=== PATIENT | female | born 1975 | race Caucasian/White ===

== ENCOUNTER 2017-05-23 05:28 | Outpatient (CLI) | payer OTHER ==
[~2017-05-23] VITALS: Ht 167.6 cm; Wt 60.3 kg
== END 2017-05-23 09:36 ==
LOC: PREOP 05:28 → EDUNIT# 08:30 → PREOP 09:36
PROVIDERS: ATTEND Obstetrics & Gynecology
DX: Z01.818 Encounter for other preprocedural examination (principal); O02.1 Missed abortion; Z3A.00 Weeks of gestation of pregnancy not specified

== ENCOUNTER 2017-05-25 06:07 | Day surgery (SDC) | payer OTHER ==
[~2017-05-25] VITALS: Ht 167.6 cm; Wt 60.3 kg
[2017-05-25 06:30] VITALS: BP 106/47
[2017-05-25 06:49] LABS: BASOPHILS % (AUTO) 1 % (0-10); EOSINOPHILS % (AUTO) 1 % (0-10); LYMPHOCYTES # (AUTO) 2.1 X 10^3 (1.0-4.0); LYMPHOCYTES % (AUTO) 36 % (12-44); MEAN CORPUSCULAR HEMOGLOBIN 31 PG (25-34); MEAN CORPUSCULAR HGB CONC 34 G/DL (32-36); MEAN CORPUSCULAR VOLUME 90 FL (80-99); MONOCYTES # (AUTO) 0.7 X 10^3 (0.0-1.0); MONOCYTES % (AUTO) 12 % (0-12); NEUTROPHILS % (AUTO) 51 % (42-75); PLATELET COUNT 208 10^3/uL (130-400); RED BLOOD COUNT 4.54 10^6/uL (4.35-5.85); RED CELL DISTRIBUTION WIDTH 13.2 % (10.0-14.5); WHITE BLOOD COUNT 5.9 10^3/uL (4.3-11.0)
[2017-05-25] MEDS ORDERED: fentaNYL INJECTION 100 MCG/2 ML AMP ONE (06:50)
[2017-05-25] MEDS ORDERED: LIDOCAINE PF 2% 5 ML (XYLOCAINE) VIAL ONE (06:50)
[2017-05-25] MEDS ORDERED: DEXAMETHASONE 10 MG/ML (DECADRON) 1 ML VIAL ONE (06:50)
[2017-05-25] MEDS ORDERED: proPOfol 200 MG/20 ML (DIPRIVAN) VIAL IV ONE (06:50)
[2017-05-25] MEDS ORDERED: MIDAZOLAM 2 MG/2 ML (VERSED) VIAL ONE (06:50)
[2017-05-25] MEDS ORDERED: SEVOFLURANE (ULTANE) 15 ML INHAL SOLN ONE (06:50)
[2017-05-25] MEDS ORDERED: ONDANSETRON 4 MG/2 ML (SDV) Z0FRAN ONE (06:50)
[2017-05-25] MEDS ORDERED: LACTATED RINGERS 1,000 ML IV PRN (06:57)
--- NOTE | 2017-05-25 07:08 | History & Physical-Surgical ---
HPO-Surgical History of Present Illness Chief Complaint: Missed Ab HPI: patient was seen in the office last week where US revealed no live IUP at >8 weeks gestation as well as a falling BHCG. Diagnosis/Surgical Indication: MISSED AB Procedure: Suction D&C Date of Surgery: May 25, 2017 Weight (Pounds): 133 Weight (Ounces): 0.0 Height (Feet): 5 Height (Inches): 6.00 Allergies and Home Medications Allergies Coded Allergies: Penicillins (Verified Allergy, Unknown, intractable abd pain, 05/23/17) Sulfa (Sulfonamide Antibiotics) (Verified Allergy, Unknown, HIVES, 05/23/17 ) Home Medications No Active Prescriptions or Reported Meds Past Xbpidwr-Qnxequ-Ckctcp Hx Patient Social History Marrital Status: Number of Children: 2 Number of living children: 2 Alcohol Use: Rarely Uses Recreational Drug Use: No Smoking Status: Never a Smoker Recent Foreign Travel: No Contact w/other who traveled: No Recent Hopitalizations: No Recent Infectious Disease Expo: No Seasonal Allergies Seasonal Allergies: Yes (sometimes) Reproductive System Hx Reproductive Disorders: No Exam Vital Signs Vital Signs 05/25/17 06:30 Temp 98.5 Pulse 77 Resp 18 B/P (MAP) 106/47 Pulse Ox 99 O2 Delivery Room Air Capillary Refill : Labs Laboratory Tests Test 05/25/17 06:31 Range/Units General Appearance: Alert, Oriented X3 HEENT: Atraumatic Respiratory: Clear to Auscultation Cardiovascular: Regular Rate Abdominal: Normal Bowel Sounds Extremities: No Clubbing, No Cyanosis, No Edema, Normal Pulses, No Tenderness/ Swelling Skin: No Significant Lesion Neuro: Normal Gait, Normal Speech, Strength at 5/5 X4 Ext Psych/Mental Status: Mental Status NL Assessment/Plan Assessment and Plan Diagnosis: Missed Ab P: Suction D and C Problems: Admission Diagnosis Missed Ab MAHENDRAQUCO Amelia TIRADO May 25, 2017 7:08 am
[2017-05-25] MEDS ORDERED: morphine INJ 10 MG/ML 1ML (SYR OR VIAL) ONE (07:34)
[2017-05-25] MEDS ORDERED: D5 LR IV SOLUTION 1,000 ML IV SCH (07:38)
[2017-05-25] MEDS ORDERED: KETOROLAC 30 MG/ML VIAL IVP ONE (07:45)
[2017-05-25] MEDS ORDERED: APAP 300 MG/CODEINE 30 MG (TYLENOL #3) TAB PO PRN (07:45)
[2017-05-25] MEDS ORDERED: ONDANSETRON 4 MG/2 ML (SDV) Z0FRAN IVP PRN ×2 (07:45→08:00)
--- NOTE | 2017-05-25 07:45 | Discharge Inst-Women's Service ---
Discharge Inst-Women's Serv Depart Medication/Instructions New, Converted or Re-Newed RX: RX on Chart Consults/Follow Up Additional Follow Up: Yes Orders/Referrals See in office Activity Activity: Activity as Tolerated Driving Instructions: You May Drive (do not drive today) NO SMOKING: NO SMOKING Nothing Inside Vagina: No Douching, No [employer], No Tampons Diet Discharge Diet: No Restrictions Symptoms to Report to : Bleeding Excessive, Pain Increased, Fever Over 101 Degrees F, Vaginal Bleeding Increase, Questions/Concerns For Any Problems or Questions: Contact Your Physician QUOC MCCRAY DO May 25, 2017 07:45
[2017-05-25] MEDS ORDERED: IBUP-1773 PO (07:46)
[2017-05-25] MEDS ORDERED: ACET1TAB43 PO (07:46)
[2017-05-25] MEDS ORDERED: morphine INJ 10 MG/ML 1ML (SYR OR VIAL) IVP PRN (08:00)
[2017-05-25 08:25] VITALS: BP 105/62
--- NOTE | 2017-05-25 08:27 | OPERATIVE REPORT ---
DATE OF SERVICE: 05/25/2017 PREOPERATIVE DIAGNOSES: 1. A 42-year-old G3, P2 at approximately 9 weeks' gestation. 2. Missed . POSTOPERATIVE DIAGNOSES: 1. A 42-year-old G3, P2 at approximately 9 weeks' gestation. 2. Missed . PROCEDURE: Suction dilation and curettage. SURGEON: Dr. Quoc Mccray. ANESTHESIA: LMA general. ESTIMATED BLOOD LOSS: 50 mL. URINE OUTPUT: 50 mL, clear, drained at the start of the procedure. FLUIDS: 800 mL of lactated Ringer's solution. FINDINGS: There is a small to moderate amount of products of conception and normal-sized slightly enlarged uterus, approximately 8-10 weeks' size. No adnexal fullness or masses. SPECIMENS SENT: Products of conception. INDICATIONS FOR PROCEDURE: This 42-year-old female has established care in my office. We saw her in the early states of the for bleeding. She had an anechoic-appearing gestational sac early in the ; however, due to its earliness serum beta hCG and progesterone were ordered. The beta hCG was elevated. Progesterone level was on the lower end of normal, therefore she was started on progesterone supplementation for suspect of luteal phase defect. This did subside the bleeding, and the patient continued to proceed with the as expected. The ultrasound was repeated 2-3 weeks later after this. There was noted to be a multicystic-appearing intrauterine gestation with no evidence of a pole. Beta hCG was repeated and found to be not elevating. I believe it went from 46,000 to 45,000. Due to irregular appearance of intrauterine contents, as well as no viable , I discussed with the patient proceeding with suction dilation and curettage. The risks of the procedure was discussed with the patient in detail including risk of bleeding, infection, damage to surrounding structures including uterine perforation, risk of damage to the bladder, bleeding, need for blood transfusion and risk from anesthesia. Once everything was discussed with the patient, consent was obtained in the preoperative area with her present. The patient was then taken to the operating room. OPERATIVE REPORT IN DETAIL: Once in the operating room anesthesia was found to be adequate. She was placed in the dorsal lithotomy position, prepped and draped in the normal sterile fashion. She was grossly examined under anesthesia. The uterus reveals findings as above. I then drained the bladder using straight catheterization. A weighted speculum was inserted in the patient's vagina. A right angled retractor was used to visualize the cervix. It was grasped at the 12 o'clock position using a long Allis clamp. I then gently sounded the uterine cavity. It was found to be 8-9 cm and I then gently dilated the cervix using Ailyn dilators to a maximize dilation of 8 mm. After it was dilated to this point I selected 8 curved suction curet and placed it within the intrauterine cavity placing the Omer suction device attachment onto it. I then activated the suction which reached 55-60 mmHg. At that point on two to three different passes I methodically cleared out the endometrial contents by rotating the suction curet gently. After this was done there was hardly any bleeding noted. I then performed a light curetting of the intrauterine cavity using a small to medium endometrial curet, after which there was no active bleeding noted. The patient tolerated the procedure well and was taken to the recovery area in stable condition. After all other instruments were removed from the patient's vagina, lap and sponge counts were correct at the end of the procedure. Instrument counts were correct as well. Job ID: [id number] DocumentID: [id number] Dictated Date: 05/25/2017 07:44:36 Tree Wrapper Date: 05/25/2017 08:26:26 Dictated By: QUOC MCCRAY DO
[2017-05-25 08:55] VITALS: BP 100/52
[2017-05-25 09:25] VITALS: BP 99/51
[2017-05-25 09:50] VITALS: BP 99/51
[2017-05-25] MEDS ORDERED: IBUPROFEN 600 MG (MOTRIN) TAB PO SCH (12:00)
== END 2017-05-25 09:50 | disposition home or self-care (01) ==
LOC: SDC 06:07
PROVIDERS: ATTEND Obstetrics & Gynecology
DX: O02.1 Missed abortion (principal)
CPT/HCPCS: 36415; 85025; 86850; 86900; 86901; 87081

== ENCOUNTER → 2017-12-07 | Outpatient (CLI) | payer OTHER ==
[~2017-12-07] MED LIST: ACET1TAB43 PO; IBUP-1773 PO
--- NOTE | 2017-12-07 10:12 | Diagnostic Imaging Report ---
INDICATION: Routine screening. COMPARISON: No prior mammograms are available for comparison. This is a baseline study. TECHNIQUE: Screening digital mammography was performed bilaterally with a Computer Aided Detection (CAD) system. 3D tomographic images were obtained and reviewed. FINDINGS: Scattered fibroglandular densities are identified bilaterally. There are benign calcifications bilaterally. No mass or malignant appearing microcalcifications are seen. The axillae are unremarkable. IMPRESSION: Benign findings. No mammographic features suspicious for malignancy are identified. ACR BI-RADS Category 2: Benign findings. Result letter will be mailed to the patient. Note: At least 10% of breast cancer is not imaged by mammography. Dictated by: Dictated on workstation # [id number]
== END ==
LOC: RAD 07:53
PROVIDERS: ATTEND Family Medicine
DX: Z12.31 Encounter for screening mammogram for malignant neoplasm of breast (principal)
CPT/HCPCS: 77067

== ENCOUNTER → 2018-10-28 | Outpatient (CLI) | payer OTHER, MEDICAID ==
--- NOTE | 2018-10-28 17:34 | Diagnostic Imaging Report ---
INDICATION: anatomical assessment during normal . TECHNIQUE: Multiple real-time grayscale images were obtained over the gravid uterus. COMPARISON: None. FINDINGS: A single viable intrauterine , currently in transverse orientation. The placenta is anterior and is low lying. Cervical length at 4.3 cm. Normal amount of amniotic fluid. The visualized anatomical structures including kidneys, bladder, stomach, intracranial structures, four-chamber heart, and three-vessel cord as well as cord insertion site appearing unremarkable. The spine is not well visualized given positioning at this time of imaging. Maternal adnexa is not visualized. Biometrical measurements are as follows: Biparietal 4.94 cm, age 21 weeks 0 days. Head circumference 17.78 cm, age 20 weeks 2 days. Abdominal circumference 14.84 cm, age 20 weeks 1 days. Femur length 3.38 cm, age 20 weeks 5 days. Sonographic estimate age: 20 weeks 4 days. Sonographic estimated date of delivery: 03/15/2019. Estimated Weight: 348 gm (+/- 51 gm). LMP percentile: 49%. heart rate: 160 beats per minute. number: 1 of 1. IMPRESSION: 1. Single viable intrauterine , currently in transverse orientation. Sonographic estimated age 20 weeks 4 days for an estimated date of delivery March 13, 2019. 2. The anterior placenta is low lying. Followup imaging evaluation recommended. 3. anatomical assessment appearing unremarkable. It is however noted that the spine is not well visualized given orientation at time of imaging. Dictated by: Dictated on workstation # [id number]
== END ==
LOC: RAD 15:17
PROVIDERS: ATTEND Obstetrics & Gynecology
DX: O44.42 Low lying placenta NOS or without hemorrhage, second trimester (principal); Z3A.20 20 weeks gestation of pregnancy
CPT/HCPCS: 76805

== ENCOUNTER 2019-03-04 14:50 | Inpatient (IN) | payer MEDICAID, OTHER ==
[~2019-03-04] VITALS: Ht 167.6 cm; Wt 74.2 kg
[2019-03-04] VITALS (8 sets, daily range): BP systolic 105–145; BP diastolic 57–79
--- NOTE | 2019-03-04 14:30 | NUR ---
JASON TRINH presented to unit from Dr. New's office, accompanied by Dr. New and family, with c/o INDUCTION. JASON TRINH weighed, gowned, voided, and to bed. EFHM and TOCO applied, VS taken. JASON TRINH oriented to bed controls, call light, TV, heat, and A/C controls.
[2019-03-04] MEDS ORDERED: LACTATED RINGERS 1,000 ML IV ONE (15:00)
[2019-03-04] MEDS ORDERED: TERBUTALINE INJ 1 MG/ML (BRETHINE) AMP SC PRN (15:00)
[2019-03-04] MEDS ORDERED: LIDOCAINE/EPI 2% 1:100,00 (XYLOCAINE) 20 ML VIAL INJ PRN (15:15)
[2019-03-04 15:20] LABS: BASOPHILS % (AUTO) 0 % (0-10); EOSINOPHILS % (AUTO) 0 % (0-10); HEMATOCRIT 36 % (35-52); HEMOGLOBIN 12.6 G/DL (11.5-16.0); LYMPHOCYTES # (AUTO) 1.9 X 10^3 (1.0-4.0); LYMPHOCYTES % (AUTO) 23 % (12-44); MEAN CORPUSCULAR HEMOGLOBIN 33 PG (25-34); MEAN CORPUSCULAR HGB CONC 35 G/DL (32-36); MEAN CORPUSCULAR VOLUME 94 FL (80-99); MEAN PLATELET VOLUME 11.6 FL (7.4-10.4); MONOCYTES # (AUTO) 0.9 X 10^3 (0.0-1.0); MONOCYTES % (AUTO) 11 % (0-12); NEUTROPHILS # (AUTO) 5.5 X 10^3 (1.8-7.8); NEUTROPHILS % (AUTO) 66 % (42-75); PLATELET COUNT 186 10^3/uL (130-400); RED CELL DISTRIBUTION WIDTH 13.6 % (10.0-14.5); WHITE BLOOD COUNT 8.3 10^3/uL (4.3-11.0)
[2019-03-04] MEDS ORDERED: PREN1TAB79 PO (15:38)
[2019-03-04] MEDS ORDERED: FAMO-119 PO (15:38)
[2019-03-04] MEDS ORDERED: VALA500T4 PO (15:38)
[2019-03-04] MEDS: MISOPROSTOL 100 MCG (CYTOTEC) TAB PO SCH ×3 (16:14→23:57)
[2019-03-04] MEDS: D5 LR IV SOLUTION 1,000 ML IV SCH (16:22)
--- NOTE | 2019-03-04 19:15 | NUR ---
Report to Jun Colbert RN.
[2019-03-04] MEDS: CATHETER FLUSH 10 ML SYR IV SCH (23:10)
[2019-03-05] VITALS (41 sets, daily range): BP systolic 105–142; BP diastolic 53–83
[2019-03-05] MEDS: MISOPROSTOL 100 MCG (CYTOTEC) TAB PO SCH (04:00)
--- NOTE | 2019-03-05 04:16 | NUR ---
Dr New contacted about pt care, change in orders at this time. Stop cytotec and he will be in to see pt in am. Pt advised of POC and is attempting to rest at this time
[2019-03-05] MEDS: CATHETER FLUSH 10 ML SYR IV SCH (06:12)
--- NOTE | 2019-03-05 07:43 | History & Physical-OB ---
OB - Chief Complaint & HPI Date/Time Date of Admission: Date of Admission: Mar 04, 2019 at 14:50 Date seen by a Provider: Mar 04, 2019 Time Seen by a Provider: 15:00 Chief Complaint/History OB-Reason for Admission/Chief: Induction of Labor Hx : 4 Hx Para: 2 Expected Date of Delivery: Mar 15, 2019 Gestational Age in Weeks: 38 Gestational Age in Days: 3 History of Labs O pos Antibody neg RI RPR NR HBsAg NR GC neg GBS neg Allergies and Home Medications Allergies Coded Allergies: Penicillins (Verified Allergy, Unknown, intractable abd pain, 05/23/17) Sulfa (Sulfonamide Antibiotics) (Verified Allergy, Unknown, HIVES, 05/23/17) Home Medications Famotidine 20 Mg Tablet, 20 MG PO BID, (Reported) Vit W-Ca,Fe,FA(<1 mg) 1 Each Tablet, 1 EACH PO DAILY, (Reported) Valacyclovir HCl 500 Mg Tablet, 500 MG PO BID, (Reported) Patient Home Medication List Home Medication List Reviewed: Yes OB - History Hx of Present Care: Yes Ultrasounds: Normal mid trimester US, Abnormal US findings (Oligohydramnios at 38 weeks) Obstetrical Complications: None (AMA) Medical Complications: None Delivery History Hx Blood Disorders: No Adverse Rxn to Tranfusion: No Patient Past Medical History n/a Social History/Family History HIV/AIDS: No Sexually Transmitted Disease: No Alcohol Use: Denies Use Recreational Drug Use: No OB - Admission Exam Physical Exam Vitals: Vital Signs 03/05/19 04:00 Temp 98.8 Pulse 74 Resp 16 B/P (MAP) 133/72 (92) O2 Delivery Room Air HEENT: NCAT Heart: Rhythm Normal Lungs: Clear Abdomen: Gravid Extremities: Normal Reflexes: Normal Cervical Dilatation: 1cm Effacement: 50% Station: -2 Membranes: Intact Heart Rate: 130's Accelerations: Accelerations Present Decelerations: No Decelerations Short Term Variability: Present Intermediate Variability: Average (6-25) Contractions on Admission: >10 Minutes Apart Intensity: Mild Myles Scoring Tool (Modified) Dilation (cm): 1-2cm (1) Effacement (%): 51-79% (2) Descent/Station: -2 (1) Cervix Consistency: Soft (2) Cervix Position: Middle/Mid-Position (1) Add 1 point for: Each previous vaginal delivery (1) Myles Score: 9 Labs Laboratory Tests Test 03/04/19 14:54 Range/Units White Blood Count 8.3 4.3-11.0 10^3/uL Red Blood Count 3.87 L 4.35-5.85 10^6/uL Hemoglobin 12.6 11.5-16.0 G/DL Hematocrit 36 35-52 % Mean Corpuscular Volume 94 80-99 FL Mean Corpuscular Hemoglobin 33 25-34 PG Mean Corpuscular Hemoglobin Concent 35 32-36 G/DL Red Cell Distribution Width 13.6 10.0-14.5 % Platelet Count 186 130-400 10^3/uL Mean Platelet Volume 11.6 H 7.4-10.4 FL Neutrophils (%) (Auto) 66 42-75 % Lymphocytes (%) (Auto) 23 12-44 % Monocytes (%) (Auto) 11 0-12 % Eosinophils (%) (Auto) 0 0-10 % Basophils (%) (Auto) 0 0-10 % Neutrophils # (Auto) 5.5 1.8-7.8 X 10^3 Lymphocytes # (Auto) 1.9 1.0-4.0 X 10^3 Monocytes # (Auto) 0.9 0.0-1.0 X 10^3 Eosinophils # (Auto) 0.0 0.0-0.3 10^3/uL Basophils # (Auto) 0.0 0.0-0.1 10^3/uL OB - Assessment/Plan/Diagnosis Assessment Assessment: induction of labor Admission Dx 43 yo @ 38 weeks Oligohydramnios AMA GBS neg Admission Status: Inpatient Order (span 2 midnights) Reason for Inpatient Admission: Induction of labor at term Plan Plan: Induction Induction Method: per Misoprostol Protocol QUOC MCCRAY DO Mar 05, 2019 07:42
[2019-03-05] MEDS ORDERED: LIDOCAINE/EPI 2% 1:200,00 (XYLOCAINE) 10 ML VIAL ONE (09:44)
[2019-03-05] MEDS ORDERED: FAMOTIDINE 20MG/2ML IV (PEPCID) ONE (10:20)
[2019-03-05] MEDS ORDERED: HYDROmorphone 2 MG/ML VIAL (DILAUDID) ONE (10:46)
[2019-03-05] MEDS ORDERED: HYDROmorphone 2 MG/ML VIAL (DILAUDID) IVP ONE (11:00)
[2019-03-05] MEDS ORDERED: OXYTOCIN/NORMAL SALINE 500 ML IV ONE ×2 (11:16→16:10)
[2019-03-05] MEDS: D5 LR IV SOLUTION 1,000 ML IV SCH (11:32)
[2019-03-05] MEDS ORDERED: SUFENTA 0.6MCG/ML BUPIVA 0.125 0 ML ONE (11:35)
[2019-03-05] MEDS ORDERED: SUFENTA 0.6MCG/ML BUPIVA 0.125 100 ML ONE (12:07)
[2019-03-05] MEDS ORDERED: BUPIVACAINE 0.25% 30 ML (SENSORCAINE) VIAL ONE (12:32)
[2019-03-05] MEDS ORDERED: fentaNYL INJECTION 100 MCG/2 ML AMP ONE (12:32)
[2019-03-05] MEDS ORDERED: LIDOCAINE PF 2% 5 ML (XYLOCAINE) VIAL ONE (12:33)
[2019-03-05] MEDS ORDERED: LACTATED RINGERS 1,000 ML IV SCH (12:51)
[2019-03-05] MEDS ORDERED: EPIDURAL (SUFENTA 0.6MCG/ML BUPIVA 0.125%) 100 ML BAG EPI SCH (13:00)
[2019-03-05] MEDS ORDERED: ONDANSETRON 4 MG/2 ML (SDV) Z0FRAN IV PRN (13:00)
[2019-03-05] MEDS ORDERED: NALOXONE 0.4 MG/ML 1 ML (NARCAN) VIAL IV PRN ×2 (13:00)
[2019-03-05] MEDS ORDERED: diphenhydrAMINE 50 MG/ML INJ (BENADRYL) IV PRN (13:00)
[2019-03-05] MEDS ORDERED: METOCLOPRAMIDE INJ 10 MG/2 ML (REGLAN) IV PRN (13:00)
[2019-03-05] MEDS ORDERED: PHENYLEPHRINE 100 MCG/ML 10 ML (ANESTHESIA) SYR ONE (13:26)
[2019-03-05] MEDS ORDERED: METHYLERGONOVINE 0.2 MG/ML (METHERGINE) AMP ONE (15:43)
[2019-03-05] MEDS: OXYTOCIN/NORMAL SALINE 500 ML IV SCH ×2 (15:44→16:16)
[2019-03-05] MEDS ORDERED: IBUPROFEN 600 MG (MOTRIN) TAB PO ONE (16:34)
[2019-03-05] MEDS: IBUPROFEN 600 MG (MOTRIN) TAB PO SCH ×2 (16:39→22:55)
[2019-03-05] MEDS ORDERED: MEASLES,MUMPS,RUBELLA 1 EA INJ SQ ONE (17:00)
[2019-03-05] MEDS ORDERED: WITCH HAZEL(TUCKS) 40 EA JAR TOP PRN (17:00)
[2019-03-05] MEDS ORDERED: DIBUCAINE (NUPERCAINAL) 1% OINT 30 GM TOP PRN (17:00)
[2019-03-05] MEDS ORDERED: BENZOCAINE/MENTHOL (DERMOPLAST) 56 ML CAN TP PRN (17:00)
[2019-03-05] MEDS ORDERED: TETANUS,DIPTH,PERTUSS P/F (BOOSTRIX) 0.5 ML VIAL IM ONE (17:00)
--- NOTE | 2019-03-05 17:06 | OB Labor & Delivery Record ---
L&D History Date of Service Date of Service: Mar 05, 2019 History Expected Date of Delivery: Mar 15, 2019 Gestational Age in Weeks: 38 Hx : 4 Hx Para: 2 Complications Events: Oliohydramnios (AMA), Routine care Operative Indications (Cesarea: N/A-Vaginal Delivery Intrapartal Events: None L&D Stage1 Stage One Onset of Labor - Date: Mar 05, 2019 Monitors and Tracing Monitor Mode: External Heart Rate: 120 Monitor Accelerations: Uniform Monitor Decelerations: Variable Station: 0 Chief Bank Examiner Variability: Average (6-10) Short Term Variability: Present Presentation: Vertex Vital Signs VS - Last 72 Hours, by Label 03/04/19 03/04/19 03/04/19 03/04/19 14:37 16:30 17:00 18:30 Temp 98.2 Pulse 80 73 67 Resp 16 16 16 B/P (MAP) 132/79 (96) 145/69 (94) 135/61 (85) O2 Delivery Room Air Room Air Room Air Room Air 03/04/19 03/04/19 03/04/19 03/04/19 19:00 19:45 20:05 20:35 Temp 97.5 Pulse 76 83 67 Resp 16 16 16 B/P (MAP) 132/58 (82) 127/62 (83) 105/58 (74) O2 Delivery Room Air Room Air Room Air Room Air 03/04/19 03/04/19 03/05/19 03/05/19 21:05 22:26 00:02 00:28 Temp 97.5 98.5 Pulse 74 61 59 59 Resp 16 16 16 16 B/P (MAP) 114/57 (76) 117/58 (77) 115/62 (79) 112/58 (76) O2 Delivery Room Air Room Air Room Air Room Air 03/05/19 03/05/19 03/05/19 03/05/19 00:56 04:00 07:45 09:00 Temp 98.8 98.6 98.3 Pulse 61 74 71 77 Resp 16 16 16 16 B/P (MAP) 114/65 (81) 133/72 (92) 129/67 (87) 137/83 (101) O2 Delivery Room Air Room Air Room Air Room Air 03/05/19 03/05/19 03/05/19/10/19 10:48 12:30 12:37 12:43 Temp 98.2 Pulse 79 79 77 73 Resp 20 20 20 20 B/P (MAP) 133/70 (91) 129/64 (85) 128/58 (81) 123/62 (82) Pulse Ox 100 98 O2 Delivery Room Air Room Air Room Air Room Air 03/05/19 03/05/19 03/05/19 03/05/19 12:46 12:49 12:52 12:55 Temp 98.1 Pulse 74 78 90 91 Resp 18 20 20 20 B/P (MAP) 119/63 (81) 116/64 (81) 118/58 (78) 125/61 (82) Pulse Ox 100 100 100 O2 Delivery Room Air Room Air Room Air Room Air 03/05/19 03/05/19 03/05/19 03/05/19 12:58 13:01 13:04 13:07 Pulse 91 71 81 74 Resp 20 20 20 20 B/P (MAP) 124/60 (81) 108/57 (74) 109/57 (74) 106/55 (72) Pulse Ox 100 100 100 100 O2 Delivery Room Air Room Air Room Air Room Air 03/05/19 03/05/19 03/05/19 03/05/19 13:10 13:13 13:16 13:19 Pulse 73 66 81 77 Resp 20 20 18 18 B/P (MAP) 111/57 (75) 116/58 (77) 112/54 (73) 113/53 (73) Pulse Ox 99 99 99 O2 Delivery Room Air Room Air Room Air Room Air 03/05/19 03/05/19 03/05/19 03/05/19 13:37 13:53 14:05 14:21 Temp 98.4 Pulse 73 63 67 67 Resp 18 18 18 18 B/P (MAP) 105/53 (70) 108/54 (72) 109/58 (75) 116/58 (77) Pulse Ox 100 100 O2 Delivery Room Air Room Air Room Air Room Air 03/05/19 14:35 Temp 97.8 Pulse 90 Resp 18 B/P (MAP) 113/57 (75) O2 Delivery Room Air Rupture of Membranes Spontaneous Ruture of Membrane: No Amniotic Membrane Rupture Time: 08 Amniotic Membrane Fluid Desc.: Clear Vaginal Bleeding Description: Normal Show Induction/Anesthesia Epidural Cath Placement - Time: 1234 L&D Stage2 Stage Two Stage II Date: Mar 05, 2019 Monitors and Tracing Monitor Mode: External Heart Rate: 120 Monitor Accelerations: Uniform Monitor Decelerations: Variable Longterm Variability: Average (6-10) Short Term Variability: Present Position: Right Occiput Anterior Presentation: Vertex Cord Descript/Complications Cord Vessel Description: 3 Vessels Complications tight nuchal which was clamped and cut at the perineum Delivery Type Delivery Method: Spontaneous Vaginal Anterior Shoulder: Right Episiotomy/Perineal Laceration Laceraction(s)/Extensions: Yes Episiotomy Description: 1st degree Degree (describe repair) 1st degree perineal laceration repaired using 3-0 rapide vicryl suture Condition of Delivery 1 minute Comment: 8 5 minute Comment: 8 Notes Live female infant weight 6lbs 14 oz Condition of Condition of : Living Exam: No Observed Abnormalities Resuscitation Resuscitation: N/A - Spontaneous Resp L&D Stage3 Stage Three Stage III Date: Mar 05, 2019 Pictocin Pitocin Administration Comment: 30 mu wide open at delivery of placenta Placenta Delivery Placenta Delivery: Spontaneous Delivery Summary Summary Estimated blood loss (mL): 350 Attending at delivery: Quoc Mccray DO Condition of Delivery Examined: Cervix Examined, Uterus Explored Post Hemorrhage: No Intervention Required 0.2 mg IM methergine given due to slightly increased bleeding, but this quickly subsided after med administered Condition of Mother stable Condition of Infant (s) stable QUOC MCCRAY DO Mar 05, 2019 17:06
--- NOTE | 2019-03-05 17:07 | Discharge Inst-Women's Service ---
Discharge Inst-Women's Serv Depart Medication/Instructions New, Converted or Re-Newed RX: RX on Chart Final Diagnosis PPD 1 NVD Consults/Follow Up Additional Follow Up: Yes Orders/Referrals Dr. Mccray in 6 weeks Activity Activity: Activity as Tolerated Driving Instructions: No Driving for 1 Week NO SMOKING: NO SMOKING Nothing Inside Vagina: No Douching, No [place], No Tampons Diet Discharge Diet: No Restrictions Symptoms to Report to : Bleeding Excessive, Pain Increased, Fever Over 101 Degrees F, Vaginal Bleeding Increase, Questions/Concerns For Any Problems or Questions: Contact Your Physician QUOC MCCRAY DO Mar 05, 2019 17:07
[2019-03-05] MEDS ORDERED: IBUP-844 PO (17:09)
[2019-03-05] MEDS ORDERED: Benzocaine/Menthol TP (17:09)
[2019-03-05] MEDS ORDERED: FERR325T18 PO (17:09)
[2019-03-05] MEDS ORDERED: DOCU100C37 PO (17:09)
[2019-03-05] MEDS ORDERED: IBUPROFEN 600 MG (MOTRIN) TAB PO SCH (18:00)
--- NOTE | 2019-03-05 18:00 | NUR ---
FFU/2, light rubra lochia noted, no clots expressed. Pericare performed, fresh vpad and underwear applied. Pt assisted to standing, ambulates to bathroom independently without incident. +void, assisted with pericare. Pt ambulates to nursery pushing wheelchair to see infant. No s/s of distress noted. Addendum: 03/05/19 at 1857 by ANDREW PIMENTEL RN Epidural catheter pulled out during pt movement. Tip intact. Site left open to air.
--- NOTE | 2019-03-05 19:10 | NUR ---
PT HAS BEEN IN NSY WITH INFANT. AMB BACK TO ROOM AT THIS TIME TO EAT. DENIES ANY NEEDS.
--- NOTE | 2019-03-05 20:35 | NUR ---
PT IN NSY WITH . DENIES ANY PAIN, NEEDS OR C/O'S.
[2019-03-05] MEDS ORDERED: FAMOTIDINE 20MG/2ML IV (PEPCID) IVP SCH (21:00)
--- NOTE | 2019-03-05 21:59 | NUR ---
PT AMB TO ROOM AT THIS TIME. WILL COMPLETE SHIFT ASSESSMENT.
[2019-03-05] MEDS ORDERED: CATHETER FLUSH 10 ML SYR IV SCH (22:00)
[2019-03-05] MEDS: ACYCLOVIR 400 MG TABLET (ZOVIRAX) PO SCH (22:09)
[2019-03-05] MEDS: DOCUSATE SODIUM 100 MG (COLACE) CAP PO SCH (22:09)
--- NOTE | 2019-03-05 22:10 | NUR ---
INITIAL SHIFT ASSESSMENT DONE. VSS. PT DENIES ANY NEEDS OR C/O'S.
--- NOTE | 2019-03-05 22:55 | NUR ---
PT SITTING UP . MOTRIN ADMINISTERED. DENIES ANY FURTHER NEEDS.
--- NOTE | 2019-03-06 02:05 | NUR ---
PT HAS JUST FINISHED . VSS. DENIES ANY NEEDS OR C/O'S.
[2019-03-06 02:10] VITALS: BP 112/62
[2019-03-06] MEDS: IBUPROFEN 600 MG (MOTRIN) TAB PO SCH ×4 (05:20→23:25)
--- NOTE | 2019-03-06 05:20 | NUR ---
SCHEDULED MOTRIN ADMINISTERED. PT DENIES ANY FURTHER NEEDS.
--- NOTE | 2019-03-06 06:45 | NUR ---
PT UP IN SHOWER. DOING VERY WELL. DENIES ANY PAIN, NEEDS OR C/O'S.
[2019-03-06 07:03] LABS: BASOPHILS % (AUTO) 0 % (0-10); EOSINOPHILS % (AUTO) 0 % (0-10); HEMATOCRIT 35 % (35-52); HEMOGLOBIN 11.7 G/DL (11.5-16.0); LYMPHOCYTES # (AUTO) 1.9 X 10^3 (1.0-4.0); LYMPHOCYTES % (AUTO) 14 % (12-44); MEAN CORPUSCULAR HEMOGLOBIN 32 PG (25-34); MEAN CORPUSCULAR HGB CONC 34 G/DL (32-36); MEAN CORPUSCULAR VOLUME 95 FL (80-99); MEAN PLATELET VOLUME 11.6 FL (7.4-10.4); MONOCYTES # (AUTO) 1.3 X 10^3 (0.0-1.0); MONOCYTES % (AUTO) 10 % (0-12); NEUTROPHILS % (AUTO) 76 % (42-75); PLATELET COUNT 140 10^3/uL (130-400); RED CELL DISTRIBUTION WIDTH 13.7 % (10.0-14.5); WHITE BLOOD COUNT 13.2 10^3/uL (4.3-11.0)
--- NOTE | 2019-03-06 07:23 | Anesthesia-Regional Post-Op ---
Regional Patient Condition Mental Status: Alert, Oriented x3 Circulation: Same as Pre-Op Headache: Absent Sensation: Full Recovery Motor Block: Absent Post Op Complications Complications None Follow Up Care/Instructions Patient Instructions None needed. Anesthesia/Patient Condition Patient is doing well, no complaints, stable vital signs, no apparent adverse anesthesia problems. No complications reported per nursing. MARZENA DALY CRNA Mar 06, 2019 07:23
--- NOTE | 2019-03-06 07:27 | Postpartum Progress Note ---
Note Note Day # 1 Subjective: Patient is without complaints. Ambulating, voiding. Tolerating a regular diet without nausea or vomiting. Normal lochia. Pain is well controlled with oral pain medications. Objective: Physical Exam: General - Alert and oriented, no apparent distress Abdomen - Soft, appropriately tender to palpation, non-distended, fundus firm at umbilicus Extremities - no edema, negative Giovanni's bilaterally Assessment: PPD 1 NVD Plan: Routine care. Encourage breast feeding. Encourage ambulation. Ferrous sulfate supplementation. Plan for discharge today Vitals - Labs Vital Signs - I&O Vital Signs Date Time Temp Pulse Resp B/P (MAP) Pulse Ox O2 Delivery O2 Flow Rate FiO2 03/06/19 02:10 97.2 64 16 112/62 (79) Room Air 03/05/19 22:10 98.9 68 16 120/58 (78) Room Air 03/05/19 17:50 62 18 132/62 (85) Room Air 03/05/19 17:35 71 18 131/58 (82) Room Air 03/05/19 17:20 60 18 137/62 (87) Room Air 03/05/19 17:05 63 18 135/62 (86) Room Air 03/05/19 16:50 60 18 134/63 (86) Room Air 03/05/19 16:35 56 18 135/64 (87) Room Air 03/05/19 16:20 61 18 142/65 (90) Room Air 03/05/19 16:05 98.3 81 18 141/65 (90) Room Air 03/05/19 16:02 118 18 141/77 (98) Room Air 03/05/19 15:35 112 18 129/63 (85) Room Air 03/05/19 15:20 79 18 113/66 (82) Room Air 03/05/19 15:05 90 18 111/59 (76) Room Air 03/05/19 14:50 65 18 106/56 (73) Room Air 03/05/19 14:35 97.8 90 18 113/57 (75) Room Air 03/05/19 14:21 67 18 116/58 (77) Room Air 03/05/19 14:05 67 18 109/58 (75) Room Air 03/05/19 13:53 98.4 63 18 108/54 (72) 100 Room Air 03/05/19 13:37 73 18 105/53 (70) 100 Room Air 03/05/19 13:19 77 18 113/53 (73) 99 Room Air 03/05/19 13:16 81 18 112/54 (73) 99 Room Air 03/05/19 13:13 66 20 116/58 (77) 99 Room Air 03/05/19 13:10 73 20 111/57 (75) Room Air 03/05/19 13:07 74 20 106/55 (72) 100 Room Air 03/05/19 13:04 81 20 109/57 (74) 100 Room Air 03/05/19 13:01 71 20 108/57 (74) 100 Room Air 03/05/19 12:58 91 20 124/60 (81) 100 Room Air 03/05/19 12:55 91 20 125/61 (82) Room Air 03/05/19 12:52 90 20 118/58 (78) 100 Room Air 03/05/19 12:49 78 20 116/64 (81) 100 Room Air 03/05/19 12:46 98.1 74 18 119/63 (81) 100 Room Air 03/05/19 12:43 73 20 123/62 (82) 98 Room Air 03/05/19 12:37 77 20 128/58 (81) 100 Room Air 03/05/19 12:30 79 20 129/64 (85) Room Air 03/05/19 10:48 98.2 79 20 133/70 (91) Room Air 03/05/19 09:00 98.3 77 16 137/83 (101) Room Air 03/05/19 07:45 98.6 71 16 129/67 (87) Room Air I & O 03/06/19 07:00 Intake Total 2700 ml Balance 2700 ml Labs Laboratory Tests 03/06/19 06:35: White Blood Count 13.2H, Red Blood Count 3.62L, Hemoglobin 11.7, Hematocrit 35, Mean Corpuscular Volume 95, Mean Corpuscular Hemoglobin 32, Mean Corpuscular Hemoglobin Concent 34, Red Cell Distribution Width 13.7, Platelet Count 140, Mean Platelet Volume 11.6H, Neutrophils (%) (Auto) 76H, Lymphocytes (%) (Auto) 14, Monocytes (%) (Auto) 10, Eosinophils (%) (Auto) 0, Basophils (%) (Auto) 0, Neutrophils # (Auto) 10.0H, Lymphocytes # (Auto) 1.9, Monocytes # (Auto) 1.3H, Eosinophils # (Auto) 0.0, Basophils # (Auto) 0.0 QUOC MCCRAY DO Mar 06, 2019 07:27
--- NOTE | 2019-03-06 07:30 | NUR ---
DR. MCCRAY HERE TO SEE PT.
[2019-03-06 08:00] VITALS: BP 105/54
--- NOTE | 2019-03-06 08:00 | NUR ---
A.M. ASSESSMENT COMPLETED. VSS. CARING FOR INFANT IN ROOM. GOOD INTERACTION NOTED. STATES WELL.
[2019-03-06] MEDS: FERROUS SULF 325 MG (IRON) TAB PO SCH (09:36)
[2019-03-06] MEDS: PRENATAL VITAMIN 1 EA TAB PO SCH (09:36)
[2019-03-06] MEDS: ACYCLOVIR 400 MG TABLET (ZOVIRAX) PO SCH ×3 (09:36→21:21)
[2019-03-06] MEDS: DOCUSATE SODIUM 100 MG (COLACE) CAP PO SCH ×2 (09:36→21:21)
--- NOTE | 2019-03-06 10:00 | NUR ---
AMBULATING WELL IN HALLWAY PRN.
[2019-03-06 12:00] VITALS: BP 120/56
--- NOTE | 2019-03-06 12:00 | NUR ---
CONTINUES TO DO WELL. VSS. DENIES ANY COMPLAINTS. REMAINS IN ROOM.
--- NOTE | 2019-03-06 14:00 | NUR ---
CONTINUES TO CARE FOR . PLAN FOR DISCHARGE TOMORROW.
--- NOTE | 2019-03-06 16:00 | NUR ---
NO CHANGE IN STATUS.
[2019-03-06 16:45] VITALS: BP 100/54
[2019-03-06 23:25] VITALS: BP 116/66
[2019-03-07 05:25] VITALS: BP 114/65
[2019-03-07] MEDS: IBUPROFEN 600 MG (MOTRIN) TAB PO SCH (05:25)
--- NOTE | 2019-03-07 07:52 | NUR ---
TOWELS PROVIDED PER REQUEST PT IS PREPPING TO TAKE A SHOWER. NO FURTHER NEEDS VOICED.
[2019-03-07] MEDS: FERROUS SULF 325 MG (IRON) TAB PO SCH (08:26)
[2019-03-07] MEDS: ACYCLOVIR 400 MG TABLET (ZOVIRAX) PO SCH (08:26)
[2019-03-07] MEDS: PRENATAL VITAMIN 1 EA TAB PO SCH (08:26)
[2019-03-07] MEDS: DOCUSATE SODIUM 100 MG (COLACE) CAP PO SCH (08:26)
--- NOTE | 2019-03-07 08:30 | NUR ---
PT SITTING UP IN THE CHAIR, EATING. INITIAL SHIFT ASSESSMENT COMPLETED; SEE INTERVENTION FOR FURTHER. PLANNING FOR DISCHARGE TODAY. Addendum: 03/07/19 at 1212 by GOMEZ WRIGHT RN MEDS ALSO GIVEN PO AT THIS TIME; SEE EMAR FOR FURTHER.
--- NOTE | 2019-03-07 09:42 | Postpartum Progress Note ---
Note Note Day # 2 Subjective: Patient is without complaints. Ambulating, voiding. Tolerating a regular diet without nausea or vomiting. Normal lochia. Pain is well controlled with oral pain medications. Objective: Physical Exam: General - Alert and oriented, no apparent distress Abdomen - Soft, appropriately tender to palpation, non-distended, fundus firm at umbilicus Extremities - no edema, negative Giovanni's bilaterally Assessment: PPD 1 NVD Plan: Routine care. Encourage breast feeding. Encourage ambulation. Ferrous sulfate supplementation. Plan for discharge today Vitals - Labs Vital Signs - I&O Vital Signs Date Time Temp Pulse Resp B/P (MAP) Pulse Ox O2 Delivery O2 Flow Rate FiO2 03/07/19 05:25 98.1 65 18 114/65 (81) 97 Room Air 03/06/19 23:25 97.6 70 18 116/66 (83) 97 Room Air 03/06/19 16:45 97.8 62 18 100/54 (69) 97 Room Air 03/06/19 12:00 98.5 77 18 120/56 (77) 98 Room Air QUOC MCCRAY DO Mar 07, 2019 09:42
--- NOTE | 2019-03-07 09:50 | NUR ---
DR. MCCRAY TO PT'S BEDSIDE.
--- NOTE | 2019-03-07 10:07 | NUR ---
DISCHARGE PAPERS PROVIDED AND REVIEWED WITH PT, PT VERBALIZES UNDERSTANDING AND DENIES ANY NEEDS OR QUESTIONS AT THIS TIME. PAPER SIGNED.
--- NOTE | 2019-03-07 11:35 | NUR ---
PT DISCHARGED FROM -310 TO PERSONAL AUTO VIA AMBULATORY IN STABLE CONDITION ACC BY S/O, AND Liu LAND RN.
== END 2019-03-07 11:35 | disposition home or self-care (01) | DRG 807 ==
LOC: LDRP 14:50
PROVIDERS: ADMIT Obstetrics & Gynecology; ATTEND Obstetrics & Gynecology
PROC: 10E0XZZ Delivery of Products of Conception, External Approach (ICD-10-PCS; principal; 2019-03-05)
PROC: 0HQ9XZZ Repair Perineum Skin, External Approach (ICD-10-PCS; 2019-03-05)
PROC: 3E0DXGC Introduction of Other Therapeutic Substance into Mouth and Pharynx, External Approach (ICD-10-PCS; 2019-03-05)
DX: O41.03X0 Oligohydramnios, third trimester, not applicable or unspecified (principal); O69.1XX0 Labor and delivery complicated by cord around neck, with compression, not applicable or unspecified; O70.0 First degree perineal laceration during delivery; Z37.0 Single live birth; Z3A.38 38 weeks gestation of pregnancy
CPT/HCPCS: 36415; 85025; 86850; 86900; 86901